=== PATIENT | female | born 1995 | race Caucasian/White ===

== ENCOUNTER 2020-02-15 13:50 | Inpatient (IN) | payer OTHER ==
[2020-02-15 16:00] VITALS: BMI 26.0
[2020-02-15 21:26] LABS: HEMATOCRIT 36.1 % (32.4-45.2); HEMOGLOBIN 11.9 GM/dL (10.7-15.3); MCH 29.4 pg (25.7-33.7); MCHC 32.9 g/dl (32.0-36.0); MEAN CELL VOLUME 89.2 fl (80-96); MEAN PLT VOLUME 7.7 fl (7.5-11.1); PLATELET COUNT 336 K/MM3 (134-434); RBC 4.04 M/mm3 (3.60-5.2); RDW 14.2 % (11.6-15.6); WHITE BLOOD COUNT 9.4 K/mm3 (4.0-10.0)
[2020-02-15] MEDS ORDERED: LACOSAMIDE 50 MG TABLET PO SCH (22:00)
[2020-02-15] MEDS ORDERED: lamoTRIgine 100 MG TABLET PO SCH (22:00)
[2020-02-15 22:04] LABS: ALBUMIN 3.8 g/dl (3.4-5.0)
[2020-02-15 22:06] LABS: CALCIUM 8.7 mg/dL (8.5-10.1)
[2020-02-15 22:09] LABS: BILIRUBIN,DIRECT 0.1 mg/dL (0.0-0.2)
[2020-02-15 22:12] LABS: BLOOD UREA NITROGEN 8.2 mg/dL (7-18); CREATININE 0.7 mg/dL (0.55-1.3)
[2020-02-15 22:14] LABS: BILIRUBIN,TOTAL 0.4 mg/dL (0.2-1); TOT PROT 7.1 g/dl (6.4-8.2)
[2020-02-15] MEDS ORDERED: LORazepam 2 MG/ML SDV VIAL IVPUSH PRN (22:35)
[2020-02-15] MEDS: LACOSAMIDE 50 MG TABLET PO SCH (22:47)
[2020-02-15] MEDS: LAMOTRIGINE 100 MG, LAMOTRIGINE 50 MG PO SCH (22:48)
[2020-02-16 07:56] LABS: CALCIUM 8.5 mg/dL (8.5-10.1)
[2020-02-16 07:57] LABS: BLOOD UREA NITROGEN 9.3 mg/dL (7-18)
[2020-02-16 08:00] LABS: CREATININE 0.5 mg/dL (0.55-1.3)
[2020-02-16 08:23] LABS: HEMATOCRIT 35.6 % (32.4-45.2); HEMOGLOBIN 11.9 GM/dL (10.7-15.3); MCH 29.8 pg (25.7-33.7); MCHC 33.3 g/dl (32.0-36.0); MEAN CELL VOLUME 89.3 fl (80-96); MEAN PLT VOLUME 7.9 fl (7.5-11.1); PLATELET COUNT 313 K/MM3 (134-434); RBC 3.98 M/mm3 (3.60-5.2); RDW 13.9 % (11.6-15.6); WHITE BLOOD COUNT 6.7 K/mm3 (4.0-10.0)
[2020-02-16] MEDS ORDERED: lamoTRIgine 100 MG TABLET ONE ×2 (09:35→21:13)
[2020-02-16] MEDS ORDERED: lamoTRIgine 25 MG TABLET ONE ×2 (09:36→21:13)
[2020-02-16] MEDS: LAMOTRIGINE 100 MG, LAMOTRIGINE 50 MG PO SCH ×2 (09:53→21:34)
[2020-02-16] MEDS: LACOSAMIDE 50 MG TABLET PO SCH ×2 (09:53→21:34)
[2020-02-17] MEDS ORDERED: lamoTRIgine 25 MG TABLET ONE ×2 (10:31→20:54)
[2020-02-17] MEDS ORDERED: lamoTRIgine 100 MG TABLET ONE ×2 (10:31→20:54)
[2020-02-17] MEDS: LAMOTRIGINE 100 MG, LAMOTRIGINE 50 MG PO SCH ×2 (10:32→20:59)
[2020-02-17] MEDS: LACOSAMIDE 50 MG TABLET PO SCH ×2 (10:33→20:59)
[2020-02-18] MEDS ORDERED: lamoTRIgine 25 MG TABLET ONE ×2 (10:30→10:43)
[2020-02-18] MEDS ORDERED: lamoTRIgine 100 MG TABLET ONE ×2 (10:30→10:43)
[2020-02-18] MEDS: LAMOTRIGINE 100 MG, LAMOTRIGINE 50 MG PO SCH (10:38)
[2020-02-18] MEDS: LACOSAMIDE 50 MG TABLET PO SCH (10:38)
[2020-02-18 18:20] VITALS: BP 118/77; PULSE 84; TEMP 98
== END 2020-02-18 18:40 | disposition home or self-care (01) | DRG 53 ==
LOC: J4S 15:11
PROVIDERS: ADMIT Psychiatry & Neurology Neurology; ATTEND Psychiatry & Neurology Neurology
PROC: 4A10X4Z Monitoring of Central Nervous Electrical Activity, External Approach (ICD-10-PCS; principal; 2020-02-15)
DX: G40.909 Epilepsy, unspecified, not intractable, without status epilepticus (principal)
CPT/HCPCS: 36415; 80048; 80076; 80175; 85027; 93005; 93010; 95705